=== PATIENT | female | born 1945 | race Caucasian/White ===

== ENCOUNTER 2016-12-06 11:10 | Inpatient (IN) | payer OTHER ==
[2016-12-06 11:05] VITALS: BMI 28.2
[2016-12-10] MEDS ORDERED: CEFAZOLIN 2 GM in DEXTROSE 5%-WATER - 50 ML IVPB ONE (06:46)
[2016-12-10] MEDS ORDERED: TRANEXAMIC ACID 1000 MG/10 ML VIAL IVPUSH ONE (06:46)
[2016-12-10] MEDS ORDERED: ROPIVICAINE 0.2%/MORPH PF/KETOROLAC - 51ML DISP.SYRINGE IA ONE (06:46)
[2016-12-10] MEDS: GABAPENTIN 300 MG CAPSULE (FP) PO ONE (07:00)
[2016-12-10] MEDS: CELECOXIB 200 MG CAPSULE PO ONE (07:00)
[2016-12-10] MEDS: oxyCODONE HCL 10 MG SUSTAINED ACTING TABLET PO ONE (07:00)
[2016-12-10] MEDS: PANTOPRAZOLE 40 MG TABLET (FP) PO ONE (07:00)
[2016-12-10] MEDS ORDERED: ePHEDrine SULFATE 50 MG/1 ML AMPULE ONE ×2 (07:04→10:27)
[2016-12-10] MEDS ORDERED: PROPOFOL 20 ML ONE ×6 (07:05)
[2016-12-10] MEDS ORDERED: SUCCINYLCHOLINE CHLORIDE 200 MG/10 ML VIAL ONE (07:05)
[2016-12-10] MEDS ORDERED: ceFAZolin SODIUM 1 GM VIAL ONE ×2 (07:07→07:16)
[2016-12-10] MEDS ORDERED: BUPIVACAINE HCL/PF 0.5% (5MG/ML) 10 ML VIAL ONE (07:12)
[2016-12-10] MEDS ORDERED: VANCOMYCIN 1,000 MG VIAL (RESTRICTED TO ID ONLY) ONE (07:16)
[2016-12-10] MEDS ORDERED: MIDAZOLAM HCL 2 MG/2 ML SINGLE DOSE VIAL ONE (07:22)
[2016-12-10] MEDS ORDERED: ROPIVACAINE HCL 0.5% 30ML VIAL ONE (07:22)
--- NOTE | 2016-12-10 08:02 | HP ---
Admitting History and Physical - Admission Chief Complaint: Right hip OA History of Present Illness: Right hip pain, initially treated conservatively with injections + medications, continued to have severe pain and ambulatory dysfunction. Indicated for total hip replacement. History Source: Patient, Medical Record Limitations to Obtaining History: No Limitations - Past Medical History Cardiovascular: Yes: HTN ...: No Psych: Yes: Depression Musculoskeletal: Yes: Osteoarthritis - Past Surgical History Past Surgical History: Yes: Arthrosocopy, Tonsillectomy - Advance Directives Advance Directives: Yes: Living Will, Health Care Proxy - Smoking History Smoking history: Former smoker Have you smoked in the past 12 months: No Aproximately how many cigarettes per day: 20 If you are a former smoker, when did you quit?: 1996 - Alcohol/Substance Use Hx Alcohol Use: No Home Medications - Allergies Allergies/Adverse Reactions: Allergies Allergy/AdvReac Type Severity Reaction Status Date / Time No Known Allergies Allergy Verified 12/06/16 11:11 - Home Medications Home Medications: Ambulatory Orders Acetaminophen [Tylenol .Extra-Strength -] 1,000 mg PO Q6H PRN 12/06/16 Amantadine HCl [Symmetrel -] 100 mg PO BID 12/06/16 Aripiprazole [Abilify -] 15 mg PO HS 12/06/16 Aspirin Coated [Ecotrin -] 81 mg PO DAILY 12/06/16 Calcium Carb/Vitamin D3/Vit K1 [Citracal Soft Chew] 1 tab PO BID 12/06/16 Cholecalciferol (Vitamin D3) [Vitamin D3] 5,000 unit PO DAILY 12/06/16 Fluoxetine HCl [Prozac] 60 mg PO DAILY 12/06/16 Furosemide [Lasix -] 20 mg PO DAILY 12/06/16 Losartan Potassium 50 mg PO DAILY 12/06/16 Lutein 40 mg PO DAILY 12/06/16 Multivitamins [Tab-A-Vit -] 1 tab PO DAILY 12/06/16 Naproxen [Naprosyn -] 500 mg PO BID 12/06/16 Physical Examination Vital Signs: Vital Signs Temperature 97.6 F 12/10/16 07:17 Pulse Rate 67 12/10/16 07:17 Respiratory Rate 16 12/10/16 07:17 Blood Pressure 165/74 12/10/16 07:17 O2 Sat by Pulse Oximetry (%) Constitutional: Yes: Well Nourished, No Distress, Calm Eyes: Yes: WNL, Conjunctiva Clear, EOM Intact HENT: Yes: WNL, Atraumatic, Normocephalic Neck: Yes: WNL, Supple Cardiovascular: Yes: WNL, Regular Rate and Rhythm Respiratory: Yes: WNL, Regular Gastrointestinal: Yes: WNL, Soft ...Rectal Exam: Yes: Deferred Extremities: Yes: WNL Edema: No Peripheral Pulses WNL: Yes Integumentary: Yes: WNL Neurological: Yes: WNL, Alert, Oriented ...Motor Strength: WNL Psychiatric: Yes: WNL, Alert, Oriented Labs: Reviewed in chart Imaging - Results X-ray: Image Reviewed Cat Scan: Report Reviewed, Image Reviewed Problem List - Problems (1) Osteoarthritis of right hip Code(s): M16.11 - UNILATERAL PRIMARY OSTEOARTHRITIS, RIGHT HIP Qualifiers: Osteoarthritis type: primary Qualified Code(s): M16.11 - Unilateral primary osteoarthritis, right hip; M16.11 - Unilateral primary osteoarthritis, right hip Assessment/Plan 71yo female with right hip OA for total hip replacement
[2016-12-10] MEDS ORDERED: oxyCODONE HCL 5 MG TABLET PO PRN ×2 (09:29)
[2016-12-10] MEDS ORDERED: ACETAMINOPHEN 1000 MG/100 ML VIAL (NON FORMULARY) IVPB ONE (09:29)
--- NOTE | 2016-12-10 12:49 | OP ---
Operative Note - Note: Operative Date: 12/10/16 Pre-Operative Diagnosis: right hip OA Operation: right AGNIESZKA Post-Operative Diagnosis: Same as Pre-op Surgeon: David Bruce Pick Up Attendant: Gill Slater Anesthesia: Spinal Estimated Blood Loss (mls): 250 Operative Report Dictated: Yes
[2016-12-10] MEDS ORDERED: MAG HYDROX/AL HYDROX/SIMETH 30 ML UNIT-DOSE CUP PO PRN (12:51)
[2016-12-10] MEDS ORDERED: MAGNESIUM HYDROX 2400MG/30ML ORAL SUSPENSION 30 ML CUP PO PRN (12:51)
[2016-12-10] MEDS ORDERED: ONDANSETRON 4 MG/2 ML VIAL IVPUSH PRN (12:51)
[2016-12-10] MEDS ORDERED: LACTATED RINGERS SOLUTION 1,000 ML IV SCH (13:00)
[2016-12-10] MEDS: ACETAMINOPHEN 1000 MG/100 ML VIAL (NON FORMULARY) IVPB ONE (13:05)
[2016-12-10] MEDS: KETOROLAC TROMETHAMINE 30 MG/1 ML VIAL IVPUSH SCH ×2 (13:06→18:29)
[2016-12-10] MEDS: traMADol HCL 50 MG TABLET PO SCH ×2 (13:06→18:29)
[2016-12-10] MEDS: CEFAZOLIN 2 GM/D5W 50 ML IVPB SCH (17:37)
[2016-12-10] MEDS ORDERED: DEXAMETHASONE SOD PHOSPHATE 10 MG/1 ML VIAL IVPB ONE (20:00)
[2016-12-10] MEDS: ACETAMINOPHEN 325 MG TABLET (FP) PO SCH (20:00)
[2016-12-10] MEDS ORDERED: PT OWN MED DRAWER 7, Y5N ONE (21:02)
[2016-12-10] MEDS: AMANTADINE HCL 100 MG TABLET PO SCH (21:10)
[2016-12-10] MEDS: CELECOXIB 200 MG CAPSULE PO SCH (21:10)
[2016-12-10] MEDS: ASCORBIC ACID 500 MG TABLET (FP) PO SCH (21:10)
[2016-12-10] MEDS: SENNOSIDES/DOCUSATE COMBO (SENNA PLUS) TABLET (UD) PO SCH (21:10)
[2016-12-10] MEDS: ARIPiprazole 15 MG TABLET PO SCH (21:11)
[2016-12-10] MEDS: oxyCODONE HCL 10 MG SUSTAINED ACTING TABLET PO SCH (21:11)
[2016-12-10] MEDS: GABAPENTIN 300 MG CAPSULE (FP) PO SCH (21:11)
[2016-12-10] MEDS ORDERED: GABAPENTIN 300 MG CAPSULE (FP) PO SCH (22:00)
[2016-12-10] MEDS ORDERED: ARIPiprazole 15 MG TABLET PO SCH (22:00)
[2016-12-10] MEDS ORDERED: DEXAMETHASONE SOD PHOSPHATE 10 MG/1 ML VIAL ONE (23:55)
[2016-12-11] MEDS: traMADol HCL 50 MG TABLET PO SCH ×5 (00:02→18:25)
[2016-12-11] MEDS: KETOROLAC TROMETHAMINE 30 MG/1 ML VIAL IVPUSH SCH ×2 (00:03→06:06)
[2016-12-11] MEDS: CEFAZOLIN 2 GM/D5W 50 ML IVPB SCH (01:56)
[2016-12-11] MEDS: ACETAMINOPHEN 325 MG TABLET (FP) PO SCH ×4 (02:00→20:20)
[2016-12-11 07:59] LABS: MCH 31.7 pg (25.7-33.7); MCHC 33.7 g/dl (32.0-36.0); MEAN PLT VOLUME 8.1 fl (7.5-11.1); PLATELET COUNT 315 K/MM3 (134-434); RDW 12.5 % (11.6-15.6); WHITE BLOOD COUNT 11.6 K/mm3 (4.0-10.8)
[2016-12-11] MEDS: ASPIRIN 325 MG TABLET PO SCH (08:14)
--- NOTE | 2016-12-11 08:16 | SURG ---
Surgery Director Drug Note Director Drug: Gill Slater PA-C Date of Service: 12/10/16 Diagnosis: right hip OA Procedure: right AGNIESZKA I was present for the entirety of the operative procedure. For further detail, please refer to operative report. Visit type - Case Type Case Type: Scheduled Admission - Emergency Emergency Visit: No - New patient This patient is new to me today: Yes Date on this admission: 12/10/16
[2016-12-11 08:17] LABS: ANION GAP 6 (8-16); CALCIUM 8.9 mg/dl (8.4-10.2); CO2 25 mmol/L (22-28); CREATININE 0.6 mg/dl (0.6-1.3); GLUCOSE,RANDOM 145 mg/dl (74-106)
[2016-12-11] MEDS: GABAPENTIN 300 MG CAPSULE (FP) PO ONE (08:17)
[2016-12-11] MEDS: oxyCODONE HCL 10 MG SUSTAINED ACTING TABLET PO ONE (08:17)
[2016-12-11] MEDS: CELECOXIB 200 MG CAPSULE PO ONE (08:17)
[2016-12-11] MEDS: ACETAMINOPHEN 1000 MG/100 ML VIAL (NON FORMULARY) IVPB ONE (08:18)
[2016-12-11] MEDS: PANTOPRAZOLE 40 MG TABLET (FP) PO ONE (08:18)
--- NOTE | 2016-12-11 09:26 | SPEC ---
DATE OF OPERATION: 12/10/2016 PREOPERATIVE DIAGNOSIS: Right hip osteoarthritis. POSTOPERATIVE DIAGNOSIS: Right hip osteoarthritis. PROCEDURE: Right total hip replacement with MAKOplasty robotic navigation. ATTENDING: Apollo Mccarthy MD SHIPPING PROCESSOR: AJITH Jackson ANESTHESIA: Spinal plus sedation. ESTIMATED BLOOD LOSS: 250 mL COMPLICATIONS: None. SPECIMENS: Resected bone was sent for pathological analysis. DISPOSITION: The patient was transferred to the PACU in stable condition. INDICATIONS: This is a 71-year-old female who presented to the office complaining of severe right hip pain. She was seen and examined by Dr. Mccarthy and diagnosed with severe right hip osteoarthritis. She was initially treated nonoperatively with injections, medications, and physical therapy but continued to have severe pain and ambulatory dysfunction. She was, therefore, indicated for a right total hip replacement. Risks, benefits, and alternatives to surgery were explained to the patient in great detail, and she elected to proceed with the procedure. On the day of surgery, the patient was taken to the operating room and placed on the OR table. Spinal anesthesia was administered by the anesthesiologist. The patient was then positioned in the lateral decubitus position on the table and all bony prominences were padded. An axillary roll was placed. The operative hip was then prepped and draped in the usual sterile fashion and intravenous antibiotics were given for infection prophylaxis. A surgical time-out was then performed with the team, and the patients identity, procedure, side, availability of implants, and the administration of antibiotics were confirmed. An approximately 15-cm longitudinal incision was made through the skin centered on the greater trochanter of the hip. This dissection was carried down through the subcutaneous tissues to the deep fascia. This fascia was then incised and a Cobra was placed around the inferior femoral neck. Electrocautery was used to reflect the anterior 40% of the gluteus medius and minimus starting at the musculotendinous junction and leaving a cuff for closure. This was reflected to reveal the capsule of the hip joint. An anterior capsulectomy was performed and the femoral head and neck were visualized. Grade 4 changes were noted diffusely throughout the joint. At this point, three small stab incisions were made superior to the main incision along the iliac crest. Three self-drilling Steinmann pins were then placed and the Emerson pelvic array was attached. Reference points on the limb were then entered into the robotic device and the limb length deficiency, offset, and femoral neck resection level were then calculated by the software. The hip was then dislocated with traction and external rotation. An oscillating saw was used to make the femoral neck cut at the level previously templated, and the femoral head was removed. Attention was then turned to the acetabulum. Retractors were then placed around the acetabulum and the labrum was removed. An acetabular checkpoint pin and the [employer] Software software were used to register the contours of the acetabulum. The acetabulum was then reamed in a single stage to the preoperatively templated size using the Emerson robotic arm. The appropriately sized cup was then impacted and had solid fixation as well as the preset inclination and version of 40 and 20 degrees, respectively. A polyethylene liner was then placed in the cup. Attention was then turned back to the femur, which was externally rotated for improved visualization. A femoral neck elevator was used to present the femoral neck cut, a box osteotome was used to enter the femoral canal, and a canal finder was used to go down the femoral shaft. The Emerson broaches were used sequentially until the optimal scratch fit was achieved. This correlated with the preoperatively templated size. From here, several different offset head and neck configurations were tested until excellent stability and length were obtained. These measurements were quantified using the [employer] Software software. All trial components were then removed, the femur was copiously irrigated, and the final components were placed. Leg length and stability were checked again and found to be excellent. Irrigation was performed again. Wound closure was started by repairing the abductor muscles with a no. 2 FiberWire stitch in a Krackow configuration passed through bone tunnels in the greater trochanter and tied over a bony bridge. This repair was then reinforced with a 0 V-Loc 180 barbed suture. Next, no. 1 Polysorb and 0 V-Loc 180 were used to close the fascia. The deep subcutaneous tissue was closed with no. 1 Polysorb sutures, and 2-0 Polysorb was used for the superficial subcutaneous tissue. The skin was closed using both 3-0 V-Loc 90 suture in a running subcuticular fashion and SwiftSet skin adhesive. The Emerson array and pins were removed from the iliac crest and the stab incision sites were irrigated and closed with 4-0 Polysorb sutures and SwiftSet skin adhesive. Once this was completed, a sterile dressing was applied. The patient was then awakened and taken to the PACU in stable condition. ADDENDUM: After final implants were placed, a 3-minute dilute Betadine lavage was performed according to the [facility] [place] protocol. Following this, the wound was again thoroughly irrigated with normal saline via pulsatile lavage, and wound closure was begun. APOLLO MCCARTHY M.D. [id number]
[2016-12-11] MEDS ORDERED: PT OWN MED DRAWER 7, Y5N ONE ×2 (09:57→21:06)
[2016-12-11] MEDS: oxyCODONE HCL 10 MG SUSTAINED ACTING TABLET PO SCH ×2 (10:02→21:17)
[2016-12-11] MEDS: FUROSEMIDE 20 MG TABLET (FP) PO SCH (10:02)
[2016-12-11] MEDS: GABAPENTIN 300 MG CAPSULE (FP) PO SCH ×2 (10:02→21:18)
[2016-12-11] MEDS: MULTIVITAMINS (DAILY MVI) TABLET (FP) PO SCH (10:02)
[2016-12-11] MEDS: CELECOXIB 200 MG CAPSULE PO SCH ×2 (10:02→21:17)
[2016-12-11] MEDS: LOSARTAN POTASSIUM 50 MG TABLET (FP) PO SCH (10:02)
[2016-12-11] MEDS: ASCORBIC ACID 500 MG TABLET (FP) PO SCH ×2 (10:02→21:18)
[2016-12-11] MEDS: SENNOSIDES/DOCUSATE COMBO (SENNA PLUS) TABLET (UD) PO SCH ×2 (10:02→21:17)
[2016-12-11] MEDS: PANTOPRAZOLE 40 MG TABLET (FP) PO SCH (10:02)
[2016-12-11] MEDS: AMANTADINE HCL 100 MG TABLET PO SCH ×2 (10:03→22:52)
[2016-12-11] MEDS: FLUoxetine HCL 20 MG CAPSULE (FP) PO SCH (10:03)
--- NOTE | 2016-12-11 11:12 | PN ---
Progress Note (short form) - Note Progress Note: 71F POD1 s/p R THR under spinal anesthetic with PNBs doing well. Pt states that pain is well controlled, reports no anesthetic complications. Sensory and motor function intact in bilateral lower extremities.
--- NOTE | 2016-12-11 19:54 | PN ---
Progress Note (short form) - Note Progress Note: Pt seen and examined. Comfortable. Pain well controlled. Has not voided on her own yet. AVSS Selected Entries 12/11/16 12/11/16 05:39 14:11 Temperature 98.1 F Pulse Rate 74 Respiratory 16 Rate Blood Pressure 110/48 O2 Sat by Pulse 98 92 L Oximetry (%) Oxygen Delivery Nasal Cannula Method Laboratory Tests 12/11/16 12/11/16 07:00 07:50 WBC 11.6 H Hgb 9.4 L Hct 28.0 L Plt Count 315 Sodium 128 L Potassium 4.4 Chloride 97 L Carbon Dioxide 25 Anion Gap 6 L BUN 11 Creatinine 0.6 Random Glucose 145 H Calcium 8.9 Gen: NAD RLE: c/d/i, NVID A/P 71yo female POD#1 s/p R AGNIESZKA 1. Hospitalist consult for urinary retention 2. Plan for d/c home tomorrow if urinary retention resolves. Problem List - Problems (1) Osteoarthritis of right hip Code(s): M16.11 - UNILATERAL PRIMARY OSTEOARTHRITIS, RIGHT HIP Qualifiers: Osteoarthritis type: primary Qualified Code(s): M16.11 - Unilateral primary osteoarthritis, right hip; M16.11 - Unilateral primary osteoarthritis, right hip
[2016-12-11] MEDS: ARIPiprazole 15 MG TABLET PO SCH (21:17)
[2016-12-12] MEDS: traMADol HCL 50 MG TABLET PO SCH ×3 (01:00→13:25)
[2016-12-12] MEDS: ACETAMINOPHEN 325 MG TABLET (FP) PO SCH ×3 (02:00→13:25)
[2016-12-12 08:24] LABS: MCH 32.5 pg (25.7-33.7); MCHC 34.4 g/dl (32.0-36.0); MEAN CELL VOLUME 94.5 fl (80-96); MEAN PLT VOLUME 8.1 fl (7.5-11.1); PLATELET COUNT 280 K/MM3 (134-434); RDW 12.4 % (11.6-15.6); WHITE BLOOD COUNT 11.1 K/mm3 (4.0-10.8)
[2016-12-12] MEDS: ASPIRIN 325 MG TABLET PO SCH (08:28)
[2016-12-12 08:38] LABS: ANION GAP 5 (8-16); CALCIUM 8.9 mg/dl (8.4-10.2); CO2 26 mmol/L (22-28); CREATININE 0.5 mg/dl (0.6-1.3); GLUCOSE,RANDOM 75 mg/dl (74-106)
[2016-12-12] MEDS ORDERED: PT OWN MED DRAWER 7, Y5N ONE (09:33)
[2016-12-12] MEDS: FLUoxetine HCL 20 MG CAPSULE (FP) PO SCH (09:38)
[2016-12-12] MEDS: PANTOPRAZOLE 40 MG TABLET (FP) PO SCH (09:40)
[2016-12-12] MEDS: MULTIVITAMINS (DAILY MVI) TABLET (FP) PO SCH (09:40)
[2016-12-12] MEDS: GABAPENTIN 300 MG CAPSULE (FP) PO SCH (09:40)
[2016-12-12] MEDS: LOSARTAN POTASSIUM 50 MG TABLET (FP) PO SCH (09:40)
[2016-12-12] MEDS: FUROSEMIDE 20 MG TABLET (FP) PO SCH (09:40)
[2016-12-12] MEDS: CELECOXIB 200 MG CAPSULE PO SCH (09:40)
[2016-12-12] MEDS: oxyCODONE HCL 10 MG SUSTAINED ACTING TABLET PO SCH (09:41)
[2016-12-12] MEDS: SENNOSIDES/DOCUSATE COMBO (SENNA PLUS) TABLET (UD) PO SCH (09:41)
[2016-12-12] MEDS: ASCORBIC ACID 500 MG TABLET (FP) PO SCH (09:41)
[2016-12-12] MEDS: AMANTADINE HCL 100 MG TABLET PO SCH (09:47)
--- NOTE | 2016-12-12 14:19 | CONSULT ---
Consultation: REQUESTING PROVIDER: Teo CONSULT REQUEST: We have been asked to medically evaluate this patient for urinary retention. HISTORY OF PRESENT ILLNESS: patient is a 71 y/o female with past medical history of hypertension, osteoarthritis, parkinson's disease, and depression. Patient is s/p right THR (anu) 12/10/16, Dr Bruce, spinal anesthesia. Patient was noted to have urinary retention, post op day 1 REVIEW OF SYSTEMS: CONSTITUTIONAL: Absent: fever, chills, diaphoresis, generalized weakness, malaise, loss of appetite, weight change HEENT: Absent: rhinorrhea, nasal congestion, throat pain, throat swelling, difficulty swallowing, mouth swelling, ear pain, eye pain, visual changes CARDIOVASCULAR: Absent: chest pain, syncope, palpitations, irregular heart rate, lightheadedness , peripheral edema RESPIRATORY: Absent: cough, shortness of breath, dyspnea with exertion, orthopnea, wheezing, stridor, hemoptysis GASTROINTESTINAL: Absent: abdominal pain, abdominal distension, nausea, vomiting, diarrhea, constipation, melena, hematochezia GENITOURINARY: Absent: dysuria, frequency, urgency, hesitancy, hematuria, flank pain, genital pain MUSCULOSKELETAL: Present: right hip pain Absent: myalgia, arthralgia, joint swelling, back pain, neck pain SKIN: Absent: rash, itching, pallor HEMATOLOGIC/IMMUNOLOGIC: Absent: easy bleeding, easy bruising, lymphadenopathy, frequent infections ENDOCRINE: Absent: unexplained weight gain, unexplained weight loss, heat intolerance, cold intolerance NEUROLOGIC: Absent: headache, focal weakness or paresthesias, dizziness, unsteady gait, seizure, mental status changes, bladder or bowel incontinence PSYCHIATRIC: Absent: anxiety, depression, suicidal or homicidal ideation, hallucinations. PHYSICAL EXAMINATION Vital Signs - 24 hr 12/11/16 12/12/16 20:02 04:26 Temperature 98.0 F Pulse Rate 75 Respiratory 16 18 Rate Blood Pressure 109/48 O2 Sat by Pulse 92 L 95 Oximetry (%) GENERAL: Awake, alert, and fully oriented, in no acute distress. HEAD: Normal with no signs of trauma. EYES: Pupils equal, round and reactive to light, extraocular movements intact, sclera anicteric, conjunctiva clear. No lid lag. EARS, NOSE, THROAT: Ears normal, nares patent, oropharynx clear without exudates. Moist mucous membranes. NECK: Normal range of motion, supple without lymphadenopathy, JVD, or masses. LUNGS: Breath sounds equal, clear to auscultation bilaterally. No wheezes, and no crackles. No accessory muscle use. HEART: Regular rate and rhythm, normal S1 and S2 without murmur, rub or gallop. ABDOMEN: Soft, nontender, not distended, normoactive bowel sounds, no guarding, no rebound, no masses. No hepatomegaly or splenomegaly. MUSCULOSKELETAL: Normal range of motion at all joints. No bony deformities or tenderness. No CVA tenderness. UPPER EXTREMITIES: 2+ pulses, warm, well-perfused. No cyanosis. No clubbing. Cap refill <2 seconds. No peripheral edema. LOWER EXTREMITIES: 2+ pulses, warm, well-perfused. No calf tenderness. No peripheral edema. right lateral hip aguacel dressing clean, dry and intact. scd /mag intact NEUROLOGICAL: Cranial nerves II-XII intact. Normal speech. Normal gait. PSYCHIATRIC: Cooperative. Good eye contact. Appropriate mood and affect. SKIN: Warm, dry, normal turgor, no rashes or lesions noted. Laboratory Results - last 24 hr 12/12/16 12/12/16 07:00 07:00 WBC 11.1 H RBC 2.56 L Hgb 8.3 L D Hct 24.2 L MCV 94.5 MCH 32.5 MCHC 34.4 RDW 12.4 Plt Count 280 MPV 8.1 Sodium 127 L Potassium 3.9 Chloride 96 L Carbon Dioxide 26 Anion Gap 5 L BUN 13 Creatinine 0.5 L Random Glucose 75 D Calcium 8.9 Active Medications Generic Name Dose Route Start Last Admin Trade Name Freq PRN Reason Stop Dose Admin Acetaminophen 650 mg 12/10/16 20:00 12/12/16 13:25 Tylenol - PO 12/13/16 19:59 650 mg Q6H LUCINA Administration Al Hydroxide/Mg Hydroxide 30 ml 12/10/16 12:51 Mylanta Oral Suspension - PO Q4H PRN DYSPEPSIA Amantadine HCl 100 mg 12/10/16 22:00 12/12/16 09:47 Symmetrel - PO 100 mg BID LUCINA Administration Aripiprazole 15 mg 12/10/16 22:00 12/11/16 21:17 Abilify PO 15 mg HS LUCINA Administration Ascorbic Acid 500 mg 12/10/16 22:00 12/12/16 09:41 Vitamin C - PO 500 mg BID LUCINA Administration Aspirin 325 mg 12/11/16 08:00 12/12/16 08:28 Asa - PO 325 mg DAILY@0800 LUCINA Administration Celecoxib 200 mg 12/10/16 22:00 12/12/16 09:40 Celebrex - PO 200 mg BID LUCINA Administration Fluoxetine HCl 60 mg 12/11/16 10:00 12/12/16 09:38 Prozac - PO 60 mg DAILY LUCINA Administration Furosemide 20 mg 12/11/16 10:00 12/12/16 09:40 Lasix - PO 20 mg DAILY LUCINA Administration Gabapentin 300 mg 12/10/16 22:00 12/12/16 09:40 Neurontin - PO 300 mg BID LUCINA Administration Losartan Potassium 50 mg 12/11/16 10:00 12/12/16 09:40 Cozaar - PO 50 mg DAILY LUCINA Administration Magnesium Hydroxide 30 ml 12/10/16 12:51 Milk Of Magnesia - PO PRN PRN CONSTIPATION Multivitamins/Minerals/Vitamin C 1 tab 12/11/16 10:00 12/12/16 09:40 Tab-A-Vit - PO 1 tab DAILY LUCINA Administration Ondansetron HCl 4 mg 12/10/16 12:51 12/10/16 13:06 Zofran Injection IVPUSH 4 mg Q6H PRN Administration NAUSEA Oxycodone HCl 10 mg 12/10/16 22:00 12/12/16 09:41 Oxycontin - PO 12/13/16 21:59 10 mg BID LUCINA Administration Oxycodone HCl 5 mg 12/10/16 09:29 Roxicodone - PO Q3H PRN PAIN LEVEL 1-5 Oxycodone HCl 10 mg 12/10/16 09:29 Roxicodone - PO Q3H PRN PAIN LEVEL 6-10 Pantoprazole Sodium 40 mg 12/11/16 10:00 12/12/16 09:40 Protonix - PO 40 mg DAILY LUCINA Administration Senna/Docusate Sodium 2 tablet 12/10/16 22:00 12/12/16 09:41 Pericolace - PO 2 tablet BID LUCINA Administration Tramadol HCl 50 mg 12/10/16 13:00 12/12/16 13:25 Ultram - PO 50 mg Q6H LUCINA Administration ASSESSMENT/PLAN: 1) s/p right THR (anu) post op day 2 - prn pain medication - PT as per orthopedist - incentive spirometer 2) urinary retention - one episode of urinary retention, that resolved, patient is able to void independently - monitor intake and output 3) card hypertension - continue lossartan and lasix - b/p at goal 4) psych depression - continue prozac and abilify, home medications Dispo: We will continue to follow the patient. Thank you for this consultative opportunity. Visit type - Emergency Visit Emergency Visit: No - New Patient This patient is new to me today: No - Critical Care Critical Care patient: No
[2016-12-12 14:22] VITALS: BP 106/44; PULSE 74; TEMP 97.8
--- NOTE | 2016-12-12 15:41 | PATH ---
Surgical Pathology Report Patient Name: HOLLIS WHELAN Med. Rec. #: [id number] /Age/Gender: 1945 (Age: 71) / F Account: [id number] Location: [facility] Taken: 12/10/2016 Received: 12/10/2016 Reported: 12/12/2016 Physicians: David Bruce M.D. Specimen(s) Received RIGHT FEMORAL HEAD Clinical History Right hip arthritis Final Diagnosis FEMORAL HEAD, RIGHT, TOTAL HIP REPLACEMENT: DEGENERATIVE JOINT DISEASE. Electronically Signed Marleni Lombardo M.D. Gross Description Received in formalin, labeled "right femoral head," is a 4.4 x 4.3 x 3.2 cm. femoral head with a 1 cm in length portion of femoral neck attached. The margin of resection is smooth. There is a 2.2 cm greatest dimension area of eburnation identified. The remaining articular surface is moyer-yellow and diffusely granular. The underlying trabecular bone is yellow and hard. A outside sales representative insurance section is submitted in one cassette, following decalcification. 12/11/2016 [facility]12/11/2016
== END 2016-12-12 17:07 | DRG 470 ==
LOC: FM/S 12-10 06:24
PROVIDERS: ADMIT Student in an Organized Health Care Education/Training Program; ATTEND Student in an Organized Health Care Education/Training Program
PROC: 8E0Y0CZ Robotic Assisted Procedure of Lower Extremity, Open Approach (ICD-10-PCS; 2016-12-10)
PROC: 0SR90JA Replacement of Right Hip Joint with Synthetic Substitute, Uncemented, Open Approach (ICD-10-PCS; principal; 2016-12-10 09:15)
DX: M16.11 Unilateral primary osteoarthritis, right hip (principal); I10 Essential (primary) hypertension; E78.5 Hyperlipidemia, unspecified; F32.9 Major depressive disorder, single episode, unspecified; R33.9 Retention of urine, unspecified
CPT/HCPCS: 36415; 73502-TC-RT; 80048; 85027; 88304-TC; 88311-TC; 94010; 94760; 97116-GP; 97162-GP